=== PATIENT | female | born 1960 | race Caucasian/White ===

== ENCOUNTER 2022-04-08 18:44 | Emergency (ER) | payer SELFPAY ==
[2022-04-08 19:00] VITALS: BP 135/80; PULSE 80; RESP 18; TEMP 36.6; O2SAT 96; BMI 34.0
--- NOTE | 2022-04-08 19:03 | CTR_ITS ---
PROCEDURE INFORMATION: Exam: CT Abdomen And Pelvis Without Contrast Exam date and time: 04/08/2022 7:12 PM Age: 61 years old Clinical indication: Abdominal pain; Acute; Additional info: Abd pain-- ruq-- feeling full of gas-- TECHNIQUE: Imaging protocol: Computed tomography of the abdomen and pelvis without contrast. Radiation optimization: All CT scans at this facility use at least one of these dose optimization techniques: automated exposure control; mA and/or kV adjustment per patient size (includes targeted exams where dose is matched to clinical indication); or iterative reconstruction. COMPARISON: No relevant prior studies available. RADIATION DOSE METRICS: Total DLP (mGy-cm): 765.17 FINDINGS: Liver: Normal. No mass. Gallbladder and bile ducts: Cholelithiasis. Unremarkable gallbladder wall. Negative for biliary dilation. Pancreas: Normal. No ductal dilation. Spleen: Normal. No splenomegaly. Adrenal glands: Normal. No mass. Kidneys and ureters: Unremarkable. No stones. Possible very small right kidney lower pole angiomyolipoma. Small simple left renal upper pole cortical cyst. No hydronephrosis. Stomach and bowel: Unremarkable. No obstruction. No mucosal thickening. Appendix: No evidence of appendicitis. Intraperitoneal space: Unremarkable. No free air. No significant fluid collection. Vasculature: Unremarkable. No abdominal aortic aneurysm. Lymph nodes: Unremarkable. No enlarged lymph nodes. Urinary bladder: Unremarkable as visualized. Reproductive: Unremarkable as visualized. Bones/joints: Unremarkable. No acute fracture. Soft tissues: Unremarkable. CT/CT abdomen pelvis wo con [id number] IMPRESSION: Negative for acute abdominopelvic pathology.
--- NOTE | 2022-04-08 19:18 | W.ED.ABDPA2 ---
HPI - Abdominal Pain General: Chief Complaint: Abdominal Pain Stated Complaint: abd pain Time Seen by Provider: 04/08/22 18:57 Source: patient Mode of arrival: ambulatory Limitations: no limitations History of Present Illness: 61-year-old female who states she has been having abdominal pain throughout the day states pelvic cramping pain and sharp in nature mainly in the right upper quadrant and epigastric region does radiate to her back she had some nausea states it was worse after she ate some bread. Her pain is improved currently states is a 4 out of 10 she denies any fevers any diarrhea. Associated Symptoms: Reports nausea; Denies chills, dysuria and fever(s) Review of Systems Const: Denies: fever(s), chills, body aches or change in appetite Eyes: Denies: blurry vision or eye discomfort ENMT: Denies: throat pain or dental pain Card: Denies: chest pain Resp: Denies: dyspnea GI: Reports: abdominal pain and nausea : Denies: dysuria Musc: Denies: neck pain or back pain Skin/Breast: Denies: rash Neuro: Denies: headache(s) Psych: Denies: depression [place]/Lymph: Denies: easy bruising All/Imm: Denies: urticaria PFSH ED PFSH: Surgical History (Updated 04/08/22 @ 19:19 by Yamila Wilcox MD) H/O tubal ligation Social History (Updated 04/08/22 @ 19:19 by Yamila Wilcox MD) Substance/Drug Use: never Physical Exam Const: COMMON NORMALS: no acute distress, patient oriented x3 and healthy appearing HENMT: COMMON NORMALS: normocephalic and atraumatic HEAD & SCALP: normocephalic and atraumatic Eye: COMMON NORMALS: Equal, round and reactive pupils present and EOMs intact bilaterally PUPIL: Yes Equal, round and reactive pupils present Neck/C-Spine: COMMON NORMALS: full ROM and supple Chest: COMMONS NORMALS: normal inspection of the chest and normal palpation of entire chest wall Resp: COMMON NORMALS: normal respiratory effort, No retractions, No use of accessory muscles and clear to auscultation bilaterally AUSCULTATION: clear to auscultation bilaterally Cardio: COMMON NORMALS: regular rate, regular rhythm and No murmurs present (Cardio) RATE: regular rate RHYTHM: regular rhythm GI: COMMON NORMALS: Normal to inspection, nondistended, normoactive bowel sounds present, Soft to palpation, non-tender and no masses PALPATION: Yes Soft to palpation Extremity: COMMON NORMALS: normal to inspection and full ROM Neuro: COMMON NORMALS: patient oriented x3, moves all extremities and no focal motor deficits Psych: COMMON NORMALS: mental status grossly normal, Normal thought process present and cooperative THOUGHT PROCESS: Normal thought process present Skin: COMMON NORMALS: no rashes or lesions noted and no wounds GENERAL SKIN EXAM: no rashes or lesions noted Course Vital Signs: Vital signs: Vital Signs Temperature 97.8 F 04/08/22 19:00 Pulse Rate 80 04/08/22 19:00 Respiratory Rate 18 04/08/22 19:00 Blood Pressure 135/80 04/08/22 19:00 Pulse Oximetry 96 04/08/22 19:00 Oxygen Delivery Me thod 04/08/22 19:00 MDM - Abdominal Pain Medical Decision Making Patient presents with abdominal pain consistent with biliary colic ultrasound did show gallstones no signs of cholecystitis blood works normal her pain is improved here we will get her follow-up with surgery she is to eat a bland diet she is return if worsening she understands agrees to plan. Lab Data : 04/08/22 19:07 04/08/22 19:07 Labs/Radiology: Radiology Impressions Abdomen/Pelvis CT 04/08/22 19:03 IMPRESSION: Negative for acute abdominopelvic pathology. Gallbladder Ultrasound 04/08/22 19:49 IMPRESSION: Cholelithiasis. Equivocal findings for gallbladder wall thickening. Correlation with HIDA scan may be of value. Laboratory Results WBC 9.5 10^3/uL (4.0-10.0) 04/08/22 19:07 RBC 5.29 10^6/uL (4.1-5.3) 04/08/22 19:07 Hgb 15.8 g/dL (11.5-15.3) H 04/08/22 19:07 Hct 46.8 % (37.0-47.0) 04/08/22 19:07 MCV 88.5 fl (81-99) 04/08/22 19:07 MCH 29.9 pg (28.0-34.0) 04/08/22 19:07 MCHC 33.8 g/dL (30.0-36.0) 04/08/22 19:07 RDW 13.0 % (12.1-15.1) 04/08/22 19:07 Plt Count 176 10^3/cmm (130-400) 04/08/22 19:07 MPV 11.2 fL (7.4-10.4) H 04/08/22 19:07 Neut % (Auto) 68.2 % 04/08/22 19:07 Lymph % (Auto) 26.4 % 04/08/22 19:07 [place] % (Auto) 4.6 % 04/08/22 19:07 Eos % (Auto) 0.0 % 04/08/22 19:07 Baso % (Auto) 0.4 % 04/08/22 19:07 Neut # (Auto) 6.46 10^3/uL (1.8-7.7) 04/08/22 19:07 Lymph # (Auto) 2.5 10^3/uL (0.8-4.8) 04/08/22 19:07 [place] # (Auto) 0.4 10^3/uL (0.2-0.9) 04/08/22 19:07 Eos # (Auto) 0.0 10^3/uL (0.0-0.8) 04/08/22 19:07 Baso # (Auto) 0.0 10^3/uL (0.0-0.1) 04/08/22 19:07 Nucleated RBC % (auto) 0 % 04/08/22 19:07 Nucleated RBCs # 0.0 /100WBC 04/08/22 19:07 Sodium 137 mmol/L (136-145) 04/08/22 19:07 Potassium 3.8 mmol/L (3.5-5.1) 04/08/22 19:07 Chloride 100 mmol/L (98-107) 04/08/22 19:07 Carbon Dioxide 25 mmol/L (22-29) 04/08/22 19:07 Anion Gap 15.8 (5-19) 04/08/22 19:07 BUN 11 mg/dL (8-23) 04/08/22 19:07 Creatinine 0.6 mg/dL (0.5-0.9) 04/08/22 19:07 GFR Calculation 102.0 mL/min (90-130) 04/08/22 19:07 Glucose 106 mg/dL (65-115) 04/08/22 19:07 Calculated Osmolality 284 mOsm/kg (285-295) L 04/08/22 19:07 Calcium 9.7 mg/dL (8.5-10.5) 04/08/22 19:07 Total Bilirubin 0.6 mg/dL (0.15-1.2) 04/08/22 19:07 AST 88 U/L (0-32) H 04/08/22 19:07 ALT 48 U/L (0-33) H 04/08/22 19:07 Alkaline Phosphatase 123 U/L (35-105) H 04/08/22 19:07 Total Protein 6.9 g/dL (6.6-8.7) 04/08/22 19:07 Albumin 4.2 g/dL (3.5-5.2) 04/08/22 19:07 Globulin 2.7 g/dL (1.3-4.6) 04/08/22 19:07 Lipase 72 U/L (13-60) H 04/08/22 19:07 SARS-CoV-2 Ag (Rapid) Negative (Negative) 04/08/22 19:07 EKG Data EKG 1: I personally reviewed and interpreted this EKG as follows: EKG interpretation date: 04/08/22 EKG interpretation time: 19:27 Interpretation: nsr hr [address] or t wave abnormalities qrs 98 qtc 420 Discharge Plan Discharge Patient Disposition: Home Clinical Impression: Cholelithiasis Abdominal pain Qualifiers: Abdominal location: generalized Qualified Code(s): R10.84 - Generalized abdominal pain Prescriptions: New hydrocodone-acetaminophen 5-325 mg tablet 1 tab PO Q6H PRN (Reason: pain) Qty: 14 0RF ondansetron 4 mg tablet,disintegrating 4 mg PO Q6H PRN (Reason: nausea and vomiting) Qty: 14 0RF Discharge Orders: Discharge ED (Routine); Ordered 04/08/22 Ordered By: Yamila Wilcox Referrals: Sundeep Siu DO [Physician] - 1-3 days Discharge Diet: Advance as tolerated Discharge Activity: Resume usual activity Patient Instructions: Gallstones (ED), Abdominal Pain (ED), Opioid Safety Coding Level of Care Code ED Dry Cleaner Apprentice for Chg Fwd Exam Comprehensive
[2022-04-08 19:19] LABS: Basophils % 0.4 %; Hematocrit 46.8 % (37.0-47.0); Hemoglobin 15.8 g/dL (11.5-15.3); Lymphocytes # 2.5 10^3/uL (0.8-4.8); Lymphocytes % 26.4 %; Mean Corpuscular HGB Conc 33.8 g/dL (30.0-36.0); Mean Corpuscular Hemoglobin 29.9 pg (28.0-34.0); Mean Corpuscular Volume 88.5 fl (81-99); Mean Platelet Volume 11.2 fL (7.4-10.4); Monocytes # 0.4 10^3/uL (0.2-0.9); Monocytes % 4.6 %; Neutrophils # 6.46 10^3/uL (1.8-7.7); Neutrophils % 68.2 %; Nucleated Red Blood Cells % 0 %; Platelet Count 176 10^3/cmm (130-400); Red Blood Count 5.29 10^6/uL (4.1-5.3); White Blood Count 9.5 10^3/uL (4.0-10.0)
--- NOTE | 2022-04-08 19:21 | ECG_ITS ---
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 Measurements Intervals [place] Rate: 71 P: 47 IN: 162 QRS: 75 QRSD: 98 T: 62 QT: 398 QTc: 433 Interpretive Statements SINUS RHYTHM No previous ECG available for comparison Electronically Signed On 04-09-2022 6:01:35 CDT by Adela Rodriguez M.D. [id number]
[2022-04-08] MEDS: HYDROmorphone 1 mg/mL INJ 1 mL 0.5 MG IVP (19:23)
[2022-04-08] MEDS: ondansetron 2 mg/ML SDV 2 mL 4 MG IVP ×2 (19:23→20:40)
[2022-04-08 19:36] LABS: SARS Covid-2 Antigen Negative (Negative)
[2022-04-08 19:44] LABS: Alanine Aminotransferase 48 U/L (0-33); Albumin Level 4.2 g/dL (3.5-5.2); Alkaline Phosphatase 123 U/L (35-105); Anion Gap 15.8 (5-19); Aspartate Amino Transferase 88 U/L (0-32); Blood Urea Nitrogen 11 mg/dL (8-23); Calcium 9.7 mg/dL (8.5-10.5); Carbon Dioxide 25 mmol/L (22-29); Chloride 100 mmol/L (98-107); Globulin 2.7 g/dL (1.3-4.6); Glucose 106 mg/dL (65-115); Lipase 72 U/L (13-60); Osmolality Calculated 284 mOsm/kg (285-295); Potassium 3.8 mmol/L (3.5-5.1); Sodium 137 mmol/L (136-145); Total Bilirubin 0.6 mg/dL (0.15-1.2); Total Protein 6.9 g/dL (6.6-8.7)
--- NOTE | 2022-04-08 19:49 | USR_ITS ---
PROCEDURE INFORMATION: Exam: US Abdomen, Limited; Right Upper Quadrant Exam date and time: 04/08/2022 8:00 PM Age: 61 years old Clinical indication: Abdominal pain; Other: Acute, sharp ruq pain today TECHNIQUE: Imaging protocol: Real time ultrasound of the abdomen with image documentation. Limited exam focused on the right upper quadrant. COMPARISON: CT abdomen pelvis wo con [id number] 04/08/2022 7:12 PM FINDINGS: Liver: Normal. No masses. Gallbladder: Cholelithiasis. Negative for pericholecystic fluid. The gallbladder is generally unremarkable in appearance, however there may be a focal area of thickening up to 6 mm. Biliary ducts: Normal. No stones. No dilation. Pancreas: Visualized pancreas is unremarkable. Right kidney: Normal. No mass. No hydronephrosis. US/US gall bladder [id number] IMPRESSION: Cholelithiasis. Equivocal findings for gallbladder wall thickening. Correlation with HIDA scan may be of value.
[2022-04-08 20:59] VITALS: BP 143/76; PULSE 88; RESP 17; O2SAT 99
--- NOTE | 2022-04-09 09:36 | DCPLANNER ---
Addendum entered by Janie Freeman 05/01/22 14:03: Patient had a follow up appointment with general surgery - patient did attend appointment. Addendum entered by Janie Freeman 04/09/22 11:49: Patient has a follow up appointment scheduled for Thursday, April 14, 2022 at 11:[address] Siu at General Surgery. Clinic samy call patient with appointment information. Original Note: facilities manager had message to schedule a follow up appointment for patient with general surgery. facilities manager sent patients information to the front office staff at general surgery. Patients information will be printed and reviewed. Clinic will call patient with appointment information.
== END 2022-04-08 21:01 | disposition home or self-care (01) ==
PROVIDERS: Emergency Provider Emergency Medicine
DX: K80.20 Calculus of gallbladder without cholecystitis without obstruction (principal); R10.84 Generalized abdominal pain; Z20.822 Contact with and (suspected) exposure to COVID-19
CPT/HCPCS: 74176; 76705; 80053; 83690; 85025; 87426; 93005; 96374; 96375; 96376; 99285; J1170; J2405

== ENCOUNTER 2024-05-27 08:25 | Outpatient (CLI) | payer OTHER, SELFPAY ==
--- NOTE | 2024-05-27 08:27 | MM_ITS ---
WS: [id number] Bilateral screening 3D tomosynthesis digital mammogram, 05/27/2024 8:42 AM Clinical Data: SCREENING Comparison: 11/24/2017, 11/27/2017. Findings: No spiculated masses or clustered calcifications are seen. There are no secondary signs of carcinoma . MM/MM scr BI tomosynthesis [id number] Impression: Negative bilateral mammogram unchanged. Recommend annual screening mammograms. BIRADS: 1 - Negative. FOLLOW UP: 1 Year Follow-up DENSITY: There are scattered areas of fibroglandular density. The CAD quotation checker was used
== END 2024-05-27 08:26 | disposition home or self-care (01) ==
LOC: RAD 08:26
PROVIDERS: PCP Nurse Practitioner Family; Visit Provider Nurse Practitioner Family
DX: Z12.31 Encounter for screening mammogram for malignant neoplasm of breast (principal)
CPT/HCPCS: 77063; 77067